=== PATIENT | male | born 1980 | race Caucasian/White ===

== ENCOUNTER 2022-02-09 18:16 | Outpatient (CLI) | payer BC ==
--- NOTE | 2022-02-09 14:12 | XRAY Report ---
PROCEDURE: Ribs w/PA Chest RT INDICATIONS: RIGHT SIDED RIB PAIN TECHNIQUE: Three views of the right ribs were acquired, along with a single view chest. COMPARISON: None. FINDINGS: Surgical changes and devices: None. Bones and chest wall: No fractures or dislocations. No suspicious bony lesions. Overlying soft tis sues appear unremarkable. Lungs and pleura: No pleural effusions or pneumothorax. Lungs appear clear. Mediastinum: Mediastinal contours appear normal. Heart size is normal. IMPRESSION: No rib fracture or rib lesion identified. Reviewed by: Akbar Gregorio MD on 02/09/2022 2:11 PM PDT Approved by: Akbar Gregorio MD on 02/09/2022 2:11 PM PDT Station ID: [id number]
== END 2022-02-09 18:17 | disposition home or self-care (01) ==
LOC: DI.S 18:16
PROVIDERS: ATTEND Physician Assistant Medical
DX: R07.81 Pleurodynia (principal)

== ENCOUNTER 2023-11-25 17:13 | Outpatient (CLI) | payer BC ==
--- NOTE | 2023-11-26 14:32 | Ultrasound Report ---
PROCEDURE: Soft Tissue Head or Neck INDICATIONS: MANDIBLE MASS TECHNIQUE: Real-time scanning was performed of the left mandibular jaw region. COMPARISON: None FINDINGS: Sonographic images at the area of palpable mass demonstrate a 3.5 x 1.8 x 3.0 cm as well a s a 1.5 x 0.8 x 1.6 cm foci within the subcutaneous fat. The latter demonstrates a septated appearanc e. There is no appreciable increased vascularity. Margins are smooth. IMPRESSION: Foci at the left mandibular gyral region suspicious for lipoma. However, given location and septated appearance, CT neck with contrast is recommended for further evaluation. Reviewed by: Sangita Brito MD on 11/26/2023 2:31 PM PDT Approved by: Sangita Brito MD on 11/26/2023 2:31 PM PDT Station ID: [id number]
== END 2023-11-25 17:14 | disposition home or self-care (01) ==
LOC: DI 17:13
PROVIDERS: ATTEND Internal Medicine
DX: R22.1 Localized swelling, mass and lump, neck (principal)

== ENCOUNTER 2024-01-27 08:25 | Outpatient (CLI) | payer BC ==
[2024-01-27 14:50] LABS: BASOPHILS % (AUTO) 0.4 %; EOSINOPHILS # (AUTO) 0.4 10^3/uL (0.0-0.7); EOSINOPHILS % (AUTO) 4.6 %; HCT - HEMATOCRIT 44.8 % (42.0-52.0); HGB - HEMOGLOBIN 14.6 g/dL (14.0-18.0); LYMPHOCYTES # (AUTO) 2.9 10^3/uL (1.5-3.5); LYMPHOCYTES % (AUTO) 32.6 %; MEAN CORPUSCULAR HEMOGLOBIN 28.3 pg (27.0-31.0); MEAN CORPUSCULAR HGB CONC 32.6 g/dL (32.0-36.0); MEAN CORPUSCULAR VOLUME 86.8 fL (80.0-94.0); MEAN PLATELET VOLUME 9.7 fL (7.4-11.4); MONOCYTES # (AUTO) 0.7 10^3/uL (0.0-1.0); MONOCYTES % (AUTO) 7.8 %; NEUTROPHILS # (AUTO) 4.9 10^3/uL (1.5-6.6); NEUTROPHILS % (AUTO) 54.4 %; PLT - PLATELET COUNT 261 10^3/uL (130-450); RED BLOOD COUNT 5.16 10^6/uL (4.70-6.10); RED CELL DISTRIBUTION WIDTH 14.8 % (12.0-15.0)
[2024-01-27 15:52] LABS: ALBUMIN 4.2 g/dL (3.2-5.5); ALBUMIN/GLOBULIN RATIO 1.7 (1.0-2.2); ALKALINE PHOSPHATASE 95 IU/L (42-121); ALT ALANINE AMINOTRANSFERASE 49 IU/L (10-60); AST ASPARTATE AMINOTRANSFERASE 32 IU/L (10-42); BILIRUBIN,TOTAL 0.4 mg/dL (0.2-1.0); BUN - BLOOD UREA NITROGEN 13 mg/dL (6-20); CALCIUM 9.2 mg/dL (8.5-10.3); CARBON DIOXIDE - CO2 29 mmol/L (21-32); CHLORIDE 104 mmol/L (101-111); CHOL/HDL RATIO 2.9 (<5.0); CHOLESTEROL 135 mg/dL; CREATININE 0.8 mg/dL (0.6-1.3); GFR - MDRD 105 (>89); GLUCOSE 126 mg/dL (74-104); HDL CHOLESTEROL 47 mg/dL; LDL CHOLESTEROL,CALCULATED 64 mg/dL; LDL/HDL RATIO 1.4 (<3.6); POTASSIUM 4.3 mmol/L (3.5-4.5); SODIUM 139 mmol/L (135-145); TOTAL PROTEIN 6.7 g/dL (6.4-8.9); TRIGLYCERIDES 118 mg/dL; VLDL CHOLESTEROL 24 mg/dL
[2024-01-27 16:03] LABS: THYROID STIMULATING HORMONE 1.75 uIU/mL (0.34-5.60)
[2024-01-27 20:53] LABS: ESTIMATED AVERAGE GLUCOSE 157 mg/dL (70-100); HEMOGLOBIN A1c% 7.1 % (4.27-6.07)
== END 2024-01-27 08:26 | disposition home or self-care (01) ==
LOC: LAB.S 08:25
DX: Z00.00 Encounter for general adult medical examination without abnormal findings (principal)
CPT/HCPCS: 36415; 80053; 80061; 83036; 83721; 84443; 85025